=== PATIENT | male | born 1960 | race Caucasian/White ===

== ENCOUNTER 2017-08-22 09:29 | Emergency (ER) | payer BC ==
[~2017-08-22] VITALS: Ht 185.4 cm; Wt 182.0 kg
[~2017-08-22 09:29] MED LIST: DILTCD240 PO; MAXZ25 PO; RANI300T PO; TAB-TAB PO
[2017-08-22 09:31] VITALS: BP 154/72; PULSE 98; RESP 24; TEMP 98.1; O2SAT 98
[2017-08-22] MEDS ORDERED: SODIUM CHLORIDE 0.9% FLUSH 10 ML FLUSH IV FLUSH PRN (10:15)
[2017-08-22 10:34] LABS: AUTOMATED NEUTROPHIL # 13.1 TH/MM3 (1.8-7.7); BASOPHIL # 0.1 TH/MM3 (0-0.2); BASOPHIL % 0.5 % (0.0-2.0); EOSINOPHIL # 0.1 TH/MM3 (0-0.4); EOSINOPHIL % 0.8 % (0.0-4.0); HEMATOCRIT 45.4 % (39.0-51.0); HEMOGLOBIN 15.3 GM/DL (13.0-17.0); LYMPH % 3.4 % (9.0-44.0); LYMPHOCYTE # 0.5 TH/MM3 (1.0-4.8); MEAN CELL VOLUME 89.5 FL (80.0-100.0); MEAN CORPUSCULAR HEMOGLOBIN 30.2 PG (27.0-34.0); MEAN CORPUSCULAR HGB CONC 33.8 % (32.0-36.0); MEAN PLATELET VOLUME 10.1 FL (7.0-11.0); MONO % 4.2 % (0.0-8.0); MONOCYTE # 0.6 TH/MM3 (0-0.9); NEUT % 91.1 % (16.0-70.0); PLATELET COUNT 271 TH/MM3 (150-450); RED BLOOD COUNT 5.07 MIL/MM3 (4.50-5.90); RED CELL DISTRIBUTION WIDTH 13.6 % (11.6-17.2); WHITE BLOOD COUNT 14.4 TH/MM3 (4.0-11.0)
[2017-08-22 10:44] LABS: BILIRUBIN, URINE NEG (NEG); BLOOD, URINE NEG (NEG); GLUCOSE,URINE NEG (NEG); KETONE, URINE NEG (NEG); MUCUS URINE FEW /lpf (OCC); NITRITE,URINE NEG (NEG); SQUAMOUS EPITHELIAL CELL URINE <1 /hpf (0-5); URINE COLOR YELLOW (YELLW/STRAW); URINE LEUKOCYTE ESTERASE NEG (NEG)
[2017-08-22 10:52] LABS: ALBUMIN 3.6 GM/DL (3.4-5.0); AST (GOT) 17 U/L (15-37); BICARBONATE 23.3 MEQ/L (21.0-32.0); BLOOD UREA NITROGEN 17 MG/DL (7-18); CALCIUM 8.9 MG/DL (8.5-10.1); CHLORIDE 105 MEQ/L (98-107); CREATININE 1.12 MG/DL (0.60-1.30); GLOMERULAR FILTRATION RATE 67 ML/MIN (>89); GLUCOSE,RANDOM 116 MG/DL (74-106); SODIUM (NA) 138 MEQ/L (136-145)
--- NOTE | 2017-08-22 10:53 | PD ---
HPI . Diffuse pain Chief Complaint: Respiratory Distress Time Seen by Provider: 09:52 Travel History International Travel<30 days: No Contact w/Intl Traveler<30days: No Traveled to known affect area: No History of Present Illness HPI Patient presents complaining with pain everywhere. Onset was 7 AM. He states that his discomfort is worse in his torso. He rates his discomfort at 10/10. He states that he was worried that he might throw up but has not. He also thought that he might be running a fever but is not. He states that he had a large stool but not diarrhea. He denies urinary tract symptoms. He states that he felt like this 1 time before and that it was his liver. He is unable to further elaborate as to the etiology of his liver problem. He states that it spontaneously resolved before the etiology could be determined. PFSH Past Medical History Arthritis: Yes (SPINE ) Cancer: No Cardiovascular Problems: Yes Diabetes: No Endocrine: No Gastrointestinal Disorders: Yes (ACID REFLUX) Glaucoma: No Genitourinary: No Hepatitis: No Hiatal Hernia: No Hypertension: Yes Immune Disorder: No Musculoskeletal: Yes (OCCASIONAL LOWER BACK PROBLEMS) Neurologic: No Psychiatric: No Reproductive: No Respiratory: Yes (SLEEP APNEA ON CPAP) Sleep Apnea: Yes (CPAP ) Thyroid Disease: No Influenza Vaccination: No Past Surgical History Abdominal Surgery: Yes (CHOLECYSTECTOMY 1991) AICD: No Cholecystectomy: Yes Joint Replacement: No Oral Surgery: Yes (ORAL SURGERY) Pacemaker: No Other Surgery: Yes Social History Alcohol Use: No Tobacco Use: No Substance Use: No Allergies-Medications (Allergen,Severity, Reaction): Coded Allergies: No Known Allergies (Verified Adverse Reaction, Unknown, 08/22/17) Reported Meds & Prescriptions Reported Meds & Active Scripts Active Reported Ranitidine 300 mg (Ranitidine HCl) 300 Mg Tab 1 Tab PO HS Diltiazem Cd 240 mg 240 Mg Cap 240 Mg PO DAILY Maxzide 37.5/25 Tab (Triamterene/HCTZ) 1 Tab Tab 1 Tab PO DAILY Multivitamin (Multivitamins) 1 Tab Tab 1 Tab PO DAILY Review of Systems Except as stated in HPI: all other systems reviewed are Neg General / Constitutional: Positive: Fever, Chills Cardiovascular: Positive: Chest Pain or Discomfort Gastrointestinal: Positive: Nausea, Abdominal Pain, No: Vomiting, Diarrhea Genitourinary: No: Urgency, Frequency, Dysuria Musculoskeletal: Positive: Myalgias Skin: No Rash Physical Exam Narrative GENERAL: Markedly obese. SKIN: warm/dry. Normal color. HEAD: Normocephalic. Atraumatic. EYES: Pupils equal and round. Extraocular movements are intact. No scleral icterus. ENT: Mucous membranes pink and moist. NECK: Supple. Full range of motion without pain.. CARDIOVASCULAR: Regular rate and rhythm. Heart sounds are normal. RESPIRATORY: No accessory muscle use. Clear to auscultation. Breath sounds equal bilaterally. GASTROINTESTINAL: Abdomen soft. Nontender. Bowel sounds present. Nondistended. MUSCULOSKELETAL: No obvious deformities. Normal muscle tone. NEUROLOGICAL: Awake and alert. No obvious cranial nerve deficits. Motor grossly within normal limits. Normal speech. PSYCHIATRIC: Appropriate mood and affect; insight and judgment normal. Data Data Last Documented VS Vital Signs Date Time Temp Pulse Resp B/P (MAP) Pulse Ox O2 Delivery O2 Flow Rate FiO2 08/22/17 09:41 Room Air 08/22/17 09:31 98.1 98 24 154/72 (99) 98 Orders Orders Complete Blood Count With Diff (08/22/17 10:03) Comprehensive Metabolic Panel (08/22/17 10:03) Lipase (08/22/17 10:03) Lactic Acid (08/22/17 10:03) Prothrombin Time / Inr (Pt) (08/22/17 10:03) Act Partial Throm Time (Ptt) (08/22/17 10:03) Urinalysis - C+S If Indicated (08/22/17 10:03) Iv Access Insert/Monitor (08/22/17 10:03) Ecg Monitoring (08/22/17 10:03) Oximetry (08/22/17 10:03) Sodium Chloride 0.9% Flush (Ns Flush) (08/22/17 10:15) Labs Laboratory Tests Test 08/22/17 10:15 08/22/17 10:20 White Blood Count 14.4 TH/MM3 Red Blood Count 5.07 MIL/MM3 Hemoglobin 15.3 GM/DL Hematocrit 45.4 % Mean Corpuscular Volume 89.5 FL Mean Corpuscular Hemoglobin 30.2 PG Mean Corpuscular Hemoglobin Concent 33.8 % Red Cell Distribution Width 13.6 % Platelet Count 271 TH/MM3 Mean Platelet Volume 10.1 FL Neutrophils (%) (Auto) 91.1 % Lymphocytes (%) (Auto) 3.4 % Monocytes (%) (Auto) 4.2 % Eosinophils (%) (Auto) 0.8 % Basophils (%) (Auto) 0.5 % Neutrophils # (Auto) 13.1 TH/MM3 Lymphocytes # (Auto) 0.5 TH/MM3 Monocytes # (Auto) 0.6 TH/MM3 Eosinophils # (Auto) 0.1 TH/MM3 Basophils # (Auto) 0.1 TH/MM3 CBC Comment DIFF FINAL Differential Comment Prothrombin Time 10.0 SEC Prothromb Time International Ratio 1.0 RATIO Activated Partial Thromboplast Time 26.8 SEC Blood Urea Nitrogen 17 MG/DL Creatinine 1.12 MG/DL Random Glucose 116 MG/DL Total Protein 7.0 GM/DL Albumin 3.6 GM/DL Calcium Level 8.9 MG/DL Alkaline Phosphatase 82 U/L Aspartate Amino Transf (AST/SGOT) 17 U/L Alanine Aminotransferase (ALT/SGPT) 26 U/L Total Bilirubin 0.5 MG/DL Sodium Level 138 MEQ/L Potassium Level 3.6 MEQ/L Chloride Level 105 MEQ/L Carbon Dioxide Level 23.3 MEQ/L Anion Gap 10 MEQ/L Estimat Glomerular Filtration Rate 67 ML/MIN Lactic Acid Level 2.0 mmol/L Lipase 120 U/L Urine Color YELLOW Urine Turbidity HAZY Urine pH 6.0 Urine Specific [place] 1.017 Urine Protein NEG mg/dL Urine Glucose (UA) NEG mg/dL Urine Ketones NEG mg/dL Urine Occult Blood NEG Urine Nitrite NEG Urine Bilirubin NEG Urine Urobilinogen LESS THAN 2 mg/dL Urine Leukocyte Esterase NEG Urine RBC LESS THAN 1 /hpf Urine WBC 1 /hpf Urine Squamous Epithelial Cells <1 /hpf Urine Mucus FEW /lpf Microscopic Urinalysis Comment CULT NOT INDICATED MDM Medical Decision Making Medical Screen Exam Complete: Yes Emergency Medical Condition: Yes Interpretation(s) EKG shows a normal sinus rhythm with no acute ischemic changes. Differential Diagnosis Differential diagnosis includes but is not limited to viral syndrome, rhabdomyolysis, sepsis, overuse syndrome Narrative Course This patient presents complaining with discomfort everywhere. He also reports nausea. Onset was this morning. Physical exam is unremarkable except for obesity. CBC & BMP Diagram 08/22/17 10:15 Total Protein 7.0, Albumin 3.6, Calcium Level 8.9, Alkaline Phosphatase 82, Aspartate Amino Transf (AST/SGOT) 17, Alanine Aminotransferase (ALT/SGPT) 26, Total Bilirubin 0.5 LA 2.0 Coags normal UA negative The history, exam, diagnostic testing, and current condition do not suggest any significant pathology to warrant further testing, continued ED treatment, admission, or surgical evaluation at this point. No EMC was found. The patient 's condition is stable and appropriate for discharge. Diagnosis Primary Impression: Myalgia Patient Instructions: General Instructions, Musculoskeletal Pain (ED) Additional Instructions: Tylenol, aspirin, ibuprofen or Aleve as needed for discomfort. See your doctor if your symptoms continue. Disposition: 01 DISCHARGE HOME Condition: Stable Deena Galvin MD Aug 22, 2017 10:53
[2017-08-22 10:54] LABS: ALT (GPT) 26 U/L (12-78)
[2017-08-22 10:56] LABS: ALKALINE PHOSPHATASE 82 U/L (45-117); TOTAL BILIRUBIN ADULT 0.5 MG/DL (0.2-1.0)
[2017-08-22] MEDS ORDERED: PROMETHAZINE INJ 25 MG/ML VIAL IM ONE (11:45)
[2017-08-22 12:02] VITALS: BP 127/64
--- NOTE | 2017-08-22 22:53 | EKG ---
Date Performed: 08/22/2017 Time Performed: 09:44:40 PTAGE: 56 years EKG: Sinus rhythm INCOMPLETE RIGHT BUNDLE BRANCH BLOCK NONSPECIFIC T-WAVE ABNORMALITY BORDERLINE ECG NO PREVIOUS TRACING DOCTOR: Vivian Daugherty Interpretating Date/Time 08/22/2017 22:51:26
== END 2017-08-22 12:17 | disposition home or self-care (01) ==
LOC: NEPC 09:29
DX: M79.1 Myalgia (principal); R11.0 Nausea; R50.9 Fever, unspecified; R07.9 Chest pain, unspecified; R10.9 Unspecified abdominal pain; R94.31 Abnormal electrocardiogram [ECG] [EKG]; E66.9 Obesity, unspecified; I10 Essential (primary) hypertension; M19.90 Unspecified osteoarthritis, unspecified site; K21.9 Gastro-esophageal reflux disease without esophagitis; G47.30 Sleep apnea, unspecified; Z79.899 Other long term (current) drug therapy
CPT/HCPCS: 80053; 81001; 83605; 83690; 85025; 85610; 85730; 93005; 96372; 99284; J2550